=== PATIENT | male | born 2000 | race Caucasian/White ===

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

== ENCOUNTER 2020-08-26 12:21 | Emergency (ER) | payer OTHER ==
[~2020-08-26] VITALS: Wt 81.6 kg
[~2020-08-26 12:21] MED LIST changes: +ACYCLOVIR400 MG PO
== END 2020-08-26 13:46 | disposition home or self-care (01) ==
LOC: ED 12:21
DX: S60.511A Abrasion of right hand, initial encounter (principal); S60.811A Abrasion of right wrist, initial encounter; S60.419A Abrasion of unspecified finger, initial encounter; F17.200 Nicotine dependence, unspecified, uncomplicated; Z79.899 Other long term (current) drug therapy; W22.01XA Walked into wall, initial encounter; Y93.89 Activity, other specified; Y92.89 Other specified places as the place of occurrence of the external cause; Y99.8 Other external cause status

== ENCOUNTER 2021-12-22 14:03 | Emergency (ER) | payer OTHER ==
[~2021-12-22] VITALS: Wt 74.8 kg
[2021-12-22] MEDS ORDERED: ANUCORT-HC25 MG R (16:11)
[2021-12-22] MEDS ORDERED: AVPAK AZITHROM250 M1 PO (16:11)
== END 2021-12-22 16:20 | disposition home or self-care (01) ==
LOC: ED 14:03
DX: J01.90 Acute sinusitis, unspecified (principal); K64.4 Residual hemorrhoidal skin tags; F17.200 Nicotine dependence, unspecified, uncomplicated